=== PATIENT | female | born 1965 | race American Indian/Alaskan Native ===

== ENCOUNTER 2016-10-30 11:33 | Emergency (ER) | payer MEDICAID, OTHER ==
--- NOTE | 2016-11-23 16:48 | EDM.PDOC ---
Scribed by Delfina Trujillo 10/30/16 1442 for Emmanuel Cervantes MD ED HPI Skin/Rash - General Chief Complaint: Skin Complaint Stated Complaint: ABSESS [id number] Time Seen by Provider: 10/30/16 12:19 Source: Reports: Patient, RN, RN notes reviewed History Limitations: Reports: No limitations - History of Present Illness INITIAL COMMENTS - FREE TEXT/NARRATIVE: Patient with abscessed tooth at right lower molar. Painful x3 days. History of chronic dental decay. Quality: Reports: Ache Severity: moderate Associated Symptoms: Reports: no other symptoms - Related Data Allergies Allergy/AdvReac Type Severity Reaction Status Date / Time Sulfa (Sulfonamide Allergy Cannot Verified 11/17/16 20:57 Antibiotics) Remember Home Meds: Ambulatory Orders Medication Instructions Recorded Confirmed Ibuprofen 200 mg PO Q6H PRN 06/20/16 11/17/16 Past Medical History - Past Health History Medical/Surgical History: Denies Medical/Surgical History Musculoskeletal History: Reports: Back pain, chronic Neurological History: Reports: Vertigo Social & Family History - Family History Family Medical History: Noncontributory - Tobacco Use Smoking Status *Q: Current Every Day Smoker Years of Tobacco use: 20 Packs/Tins Daily: 0.5 - Caffeine Use Caffeine Use: Reports: Coffee - Recreational Drug Use Recreational Drug Use: No ED ROS GENERAL - Review of Systems Review Of Systems: ROS reveals no pertinent complaints other than HPI. ED EXAM, SKIN/RASH Exam: See Below Exam Limited By: No limitations General Appearance: alert, WD/WN, no apparent distress Eye Exam: bilateral eye: normal inspection Ears: normal external exam, normal canal, hearing grossly normal, normal TMs Nose: normal inspection, normal mucosa, no blood Throat/Mouth: Other (chronic extensive dental decay with swollen, erythemous gums at right maxillary molar region. Not fluctuant. No drainage. ) Head: atraumatic, normocephalic Neck: normal inspection, supple, non-tender, full range of motion Respiratory/Chest: no respiratory distress Neurological: alert, oriented, CN II-XII intact, normal cognition, normal gait, normal reflexes, no motor/sensory deficits Psychiatric: normal affect, normal mood Skin: Warm, Dry, Intact, Normal color Course - Vital Signs Last Recorded V/S: Last Vital Signs Temp 36.8 C 10/30/16 11:45 Pulse 78 10/30/16 11:45 Resp 16 10/30/16 11:45 BP 108/67 10/30/16 11:45 Pulse Ox 100 10/30/16 11:45 Departure - Departure Time of Disposition: 12:26 Disposition: Home, Self-Care 01 Condition: good Clinical Impression: Dental abscess Instructions: Dental Abscess, [id number] Referrals: PCP,None [Primary Care Provider] - Forms: ED Department Discharge Additional Instructions: Clindamycin 300mg. Viscus lidocaine 2%. Use over the counter Ibuprofen 200mg take 3 tablets every 6 hours as needed for pain, take with good. Follow up with dentist at first available appointment. I have read and agree with the documentation that has been completed regarding this visit. By signing this record, I attest that the documentation was completed in my physical presence and is an accurate record of the encounter.
== END 2016-10-30 12:34 | disposition home or self-care (01) ==
LOC: DL.ED 11:33
CPT/HCPCS: 99282

== ENCOUNTER 2016-11-17 20:48 | Emergency (ER) | payer MEDICAID ==
[2016-11-17 20:57] VITALS: BP 137/53
[2016-11-17] MEDS ORDERED: Gabapentin 300 MG Cap PO ONE (21:01)
[2016-11-17] MEDS ORDERED: Ibuprofen 600 MG Tab PO ONE (21:01)
--- NOTE | 2016-11-17 21:02 | EDM.PDOC ---
ED HPI GENERAL MEDICAL PROBLEM - General Chief Complaint: Neck Problem Stated Complaint: NECK Time Seen by Provider: 11/17/16 20:59 Source of Information: Reports: Patient History Limitations: Reports: No limitations - History of Present Illness INITIAL COMMENTS - FREE TEXT/NARRATIVE: 51 yo white female c/o low posterior neck pain after elevator door hit her in back yesterday. Pt. admits to PMHx. Cervical DDD. Pt. present has Neurontin at home but has not started using. 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 Neck Pain Score (Numeric/FACES): 7 - Related Data Allergies Allergy/AdvReac Type Severity Reaction Status Date / Time Sulfa (Sulfonamide Allergy Cannot Verified 11/17/16 20:57 Antibiotics) Remember Home Meds: Home Meds Ibuprofen 200 mg PO Q6H PRN 06/20/16 [History] Past Medical History - Past Health History Medical/Surgical History: Denies Medical/Surgical History HEENT History: Reports: None Cardiovascular History: Reports: None Respiratory History: Reports: None Gastrointestinal History: Reports: None Genitourinary History: Reports: None Musculoskeletal History: Reports: Back pain, chronic, Neck pain, chronic Neurological History: Reports: None, Vertigo Psychiatric History: Reports: None Endocrine/Metabolic History: Reports: None Hematologic History: Reports: None Oncologic (Cancer) History: Reports: None Dermatologic History: Reports: None Social & Family History - Family History Family Medical History: Noncontributory - Tobacco Use Smoking Status *Q: Current Every Day Smoker Years of Tobacco use: 20 Packs/Tins Daily: 0.5 - Caffeine Use Caffeine Use: Reports: Coffee - Recreational Drug Use Recreational Drug Use: No ED ROS GENERAL - Review of Systems Review Of Systems: See Below Constitutional: Reports: no symptoms HEENT: Reports: No symptoms Respiratory: Reports: No Symptoms Cardiovascular: Reports: No symptoms Endocrine: Reports: no symptoms GI/Abdominal: Reports: No symptoms Musculoskeletal: Reports: neck pain (low posterior neck ) Skin: Reports: no symptoms Neurological: Reports: No Symptoms Psychiatric: Reports: No symptoms Hematologic/Lymphatic: Reports: no symptoms Immunologic: Reports: no symptoms ED EXAM, GENERAL - Physical Exam Exam: See Below Exam Limited By: No limitations General Appearance: alert, no apparent distress Eye Exam: bilateral eye: PERRL Ears: normal external exam Nose: normal inspection Throat/Mouth: Normal inspection Head: atraumatic Neck: other (low posterior neck tenderness w/o swelling and w/o discoloration) Respiratory/Chest: no respiratory distress Cardiovascular: normal peripheral pulses, regular rate, rhythm Back Exam: normal inspection, full range of motion Extremities: normal inspection Neurological: alert, oriented, CN II-XII intact Psychiatric: normal affect, normal mood Skin Exam: Warm Lymphatic: no adenopathy Course - Vital Signs Last Recorded V/S: Last Vital Signs Temp 36.1 C 11/17/16 20:53 Pulse 83 11/17/16 20:53 Resp 16 11/17/16 20:53 BP 137/53 L 11/17/16 20:53 Pulse Ox 100 11/17/16 20:53 - Orders/Labs/Meds Orders: Active Orders 24 hr Category Date Time Status Cervical Spine 2V or 3V [CR] Urgent Exams 11/17/16 21:01 Taken Meds: Medications Discontinued Medications Generic Name Dose Route Start Last Admin Trade Name Freq PRN Reason Stop Dose Admin Gabapentin 300 mg 11/17/16 21:01 11/17/16 21:16 Neurontin PO 11/17/16 21:02 300 mg ONETIME ONE Administration Ibuprofen 600 mg 11/17/16 21:01 11/17/16 21:16 Motrin PO 11/17/16 21:02 600 mg ONETIME ONE Administration Departure - Departure Time of Disposition: 21:28 Disposition: Home, Self-Care 01 Condition: good Clinical Impression: Degenerative disc disease, cervical Contusion Qualifiers: Encounter type: initial encounter Contusion area: neck Qualified Code(s): S10.93XA - Contusion of unspecified part of neck, initial encounter Forms: ED Department Discharge Additional Instructions: Apply Ice Pack to area of pain TID X 15 mns. Take your script of Neurontin as prescribed by your Doctor Take NSAIDs OTC : 600mg TID w/ food only ( Alleve, Advil or Ibuprofen) F/U w/ PCP for further evaluation and possible MRI evaluation - My Orders Last 24 Hours: My Active Orders 11/17/16 21:01 Cervical Spine 2V or 3V [CR] Urgent - Assessment/Plan Last 24 Hours: My Active Orders 11/17/16 21:01 Cervical Spine 2V or 3V [CR] Urgent
== END 2016-11-17 21:35 | disposition home or self-care (01) ==
LOC: DL.ED 20:48
DX: S10.93XA Contusion of unspecified part of neck, initial encounter (principal); M50.30 Other cervical disc degeneration, unspecified cervical region; F17.210 Nicotine dependence, cigarettes, uncomplicated; Z88.2 Allergy status to sulfonamides; W22.8XXA Striking against or struck by other objects, initial encounter
CPT/HCPCS: 72040; 99283; A9270

== ENCOUNTER 2017-05-23 12:17 | Emergency (ER) | payer MEDICAID ==
[2017-05-23 12:36] VITALS: BP 122/87
[2017-05-23 14:22] LABS: CHLORIDE,CL 100 mmol/L (101-111); SODIUM,NA 137 mmol/L (135-145)
--- NOTE | 2017-05-23 14:42 | EDM.PDOC ---
ED HPI GENERAL MEDICAL PROBLEM - General Chief Complaint: General Stated Complaint: DIZZY, LIGHTHEADED, BACK PAIN Time Seen by Provider: 05/23/17 13:45 Source of Information: Reports: Patient, RN, RN Notes Reviewed History Limitations: Reports: No Limitations - History of Present Illness INITIAL COMMENTS - FREE TEXT/NARRATIVE: Patient presents to the ER with c/o dizziness. She states she has been diagnosed with vertigo in the past, and she does have Meclizine, but she feels it has been increased the last "day or so". She denies N/V/D, CP or SOB, fever or chills, or syncope. Onset: Gradual Onset Date: 05/22/17 Location: Reports: Head Severity: Mild Improves with: Reports: None Worsens with: Reports: None Context: Reports: Activity, Exercise Associated Symptoms: Reports: No Other Symptoms Generalized Pain Score (Numeric/FACES): 6 - Related Data Allergies Allergy/AdvReac Type Severity Reaction Status Date / Time Sulfa (Sulfonamide Allergy Cannot Verified 05/23/17 12:27 Antibiotics) Remember Home Meds: Home Meds Ibuprofen 200 mg PO Q6H PRN 06/20/16 [History] Acetaminophen [Tylenol Extra Strength] 500 mg PO DAILY 05/23/17 [History] Gabapentin [Neurontin] 300 mg PO BEDTIME 05/23/17 [History] Past Medical History - Past Health History Medical/Surgical History: Denies Medical/Surgical History HEENT History: Reports: None Cardiovascular History: Reports: None Respiratory History: Reports: None Gastrointestinal History: Reports: None Genitourinary History: Reports: None Musculoskeletal History: Reports: Back Pain, Chronic, Neck Pain, Chronic Neurological History: Reports: Vertigo Psychiatric History: Reports: None Endocrine/Metabolic History: Reports: None Hematologic History: Reports: None Oncologic (Cancer) History: Reports: None Dermatologic History: Reports: None Social & Family History - Family History Family Medical History: Unobtainable - Tobacco Use Smoking Status *Q: Current Every Day Smoker Years of Tobacco use: 30 Packs/Tins Daily: 1 Used Tobacco, but Quit: No - Caffeine Use Caffeine Use: Reports: Coffee - Recreational Drug Use Recreational Drug Use: No ED ROS GENERAL - Review of Systems Review Of Systems: ROS reveals no pertinent complaints other than HPI. ED EXAM, GENERAL - Physical Exam Exam: See Below Exam Limited By: No Limitations General Appearance: Alert, WD/WN, No Apparent Distress Eye Exam: Bilateral Eye: Normal Inspection, PERRL Ears: Normal External Exam, Normal Canal, Hearing Grossly Normal, Normal TMs Ear Exam: Bilateral Ear: Auricle Normal, Canal Normal, TM normal Nose: Normal Inspection, Normal Mucosa, No Blood Throat/Mouth: Normal Inspection, Normal Lips, Normal Teeth, Normal Gums, Normal Oropharynx, Normal Voice, No Airway Compromise Head: Atraumatic, Normocephalic Neck: Normal Inspection, Supple, Non-Tender, Full Range of Motion Respiratory/Chest: No Respiratory Distress, Lungs Clear, Normal Breath Sounds, No Accessory Muscle Use, Chest Non-Tender Cardiovascular: Normal Peripheral Pulses, Regular Rate, Rhythm, No Edema, No Gallop, No JVD, No Murmur, No Rub Peripheral Pulses: 2+: Radial (L), Radial (R) GI/Abdominal: Normal Bowel Sounds, Soft, Non-Tender, No Organomegaly, No Distention, No Abnormal Bruit, No Mass (Female) Exam: Deferred Rectal (Female) Exam: Deferred Back Exam: Normal Inspection, Full Range of Motion, NT Extremities: Normal Inspection, Normal Range of Motion, Non-Tender, Normal Capillary Refill, No Pedal Edema Neurological: Alert, Oriented, Normal Cognition, Normal Gait, No Motor/Sensory Deficits Psychiatric: Normal Affect, Normal Mood Skin Exam: Warm, Dry, Intact, Normal Color, No Rash Lymphatic: No Adenopathy Course - Vital Signs Last Recorded V/S: Last Vital Signs Temp 97.7 F 05/23/17 12:34 Pulse 80 05/23/17 12:34 Resp 18 05/23/17 12:34 BP 122/87 05/23/17 12:34 Pulse Ox 100 05/23/17 12:34 Orthostatic Blood Pressure [ 125/73 Standing] Orthostatic Blood Pressure [ 117/68 Sitting] Orthostatic Blood Pressure [ 133/69 Supine] - Orders/Labs/Meds Labs: Laboratory Tests 05/23/17 05/23/17 05/23/17 Range/Units 13:40 13:46 13:46 WBC 6.4 (5.0-10.0) 10^3/uL RBC 4.27 (4.2-5.4) 10^6/uL Hgb 12.7 (12.0-16.0) g/dL Hct 38.8 (37.0-47.0) % MCV 90.9 (80-100) fL MCH 29.7 (27.0-34.0) pg MCHC 32.7 L (33.0-35.0) g/dL Plt Count 214 (150-450) 10^3/uL Neut % (Auto) 58.7 (42.2-75.2) % Lymph % (Auto) 31.7 (20.5-50.1) % Leslie % (Auto) 7.9 (2-8) % Eos % (Auto) 1.4 (1.0-3.0) % Baso % (Auto) 0.3 (0.0-1.0) % Sodium 137 (135-145) mmol/L Potassium 4.0 (3.6-5.0) mmol/L Chloride 100 L (101-111) mmol/L Carbon Dioxide 28.0 (21.0-31.0) mmol/L Anion Gap 13.0 BUN 15 (7-18) mg/dL Creatinine 0.9 (0.6-1.3) mg/dL Est Cr Clr Drug Dosing 61.71 mL/min Estimated GFR (MDRD) > 60 BUN/Creatinine Ratio 16.66 Glucose 93 (74-105) mg/dL Calcium 9.0 (8.4-10.2) mg/dl Total Bilirubin 0.5 (0.2-1.0) mg/dL AST 16 (10-42) IU/L ALT 12 (10-60) IU/L Alkaline Phosphatase 62 (42-121) IU/L Total Protein 7.2 (6.7-8.2) g/dl Albumin 4.4 (3.2-5.5) g/dl Globulin 2.8 Albumin/Globulin Ratio 1.57 Urine Color Yellow (YELLOW) Urine Appearance Slightly cloudy (CLEAR) Urine pH 5.5 (5.0-9.0) Ur Specific [place] 1.010 (1.005-1.030) Urine Protein Negative (NEGATIVE) Urine Glucose (UA) Negative (NEGATIVE) Urine Ketones Negative (NEGATIVE) Urine Occult Blood Trace-lysed H (NEGATIVE) Urine Nitrite Negative (NEGATIVE) Urine Bilirubin Negative (NEGATIVE) Urine Urobilinogen 0.2 (0.2-1.0) mg/dL Ur Leukocyte Esterase Negative (NEGATIVE) Urine RBC 0-5 /HPF Urine WBC 0-5 (0-5/HPF) /HPF Ur Epithelial Cells Rare /HPF Urine Bacteria Rare (0-FEW/HPF) /HPF Urine Mucus Rare /LPF - Re-Assessments/Exams Free Text/Narrative Re-Assessment/Exam: 05/24/17 08:23\\ The patient is deemed medically stable. Upon discharge, she was taken to [facility] to be evaluated for vertigo by Saul Vela DPT. Departure - Departure Time of Disposition: 14:38 Disposition: Home, Self-Care 01 Condition: Good Clinical Impression: Vertigo - Discharge Information Instructions: Vertigo, [id number] Forms: ED Department Discharge Additional Instructions: Take Meclizine as prescribed. Follow up with primary care provider in 2-3 days.
== END 2017-05-23 14:46 | disposition home or self-care (01) ==
LOC: DL.ED 12:17
DX: R42 Dizziness and giddiness (principal); F17.210 Nicotine dependence, cigarettes, uncomplicated; Z88.2 Allergy status to sulfonamides; Z79.899 Other long term (current) drug therapy
CPT/HCPCS: 36415; 80053; 81001; 85025; 99284

== ENCOUNTER 2017-11-02 06:41 | Day surgery (SDC) | payer MEDICAID ==
[~2017-11-02 06:41] MED LIST: Midazolam 1 MG/ML 2 ML SDV ONE; Sodium Chloride 0.9% 10 ML Syringe FLUSH PRN; fentaNYL 100 MCG/2 ML SDV ONE
[2017-11-02] MEDS ORDERED: fentaNYL 100 MCG/2 ML SDV IV ONE (06:42)
[2017-11-02] MEDS ORDERED: Midazolam 1 MG/ML 2 ML SDV IV ONE (06:42)
[2017-11-02] MEDS: Dextrose 5%-0.45% NaCl 1,000 ML IV SCH (07:09)
[2017-11-02] MEDS: fentaNYL 100 MCG/2 ML SDV IV ONE ×2 (07:46→07:47)
[2017-11-02] MEDS: Midazolam 1 MG/ML 2 ML SDV IV ONE ×6 (07:47→07:56)
--- NOTE | 2017-11-02 08:45 | OR ---
DATE: 11/02/2017 PROCEDURE: Total colonoscopy. INSTRUMENT USED: PCF-H180 AL Olympus video colonoscope. PREMEDICATIONS: Fentanyl 100 mcg intravenous, Versed 4 mg intravenous. Nasal O2 cannula. 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 INDICATION: The patient with rectal bleeding and stools FIT positive. Colonoscopic examination is done for detection of any polypoid lesions and removal, endoscopic hemostasis therapy if needed. DESCRIPTION OF PROCEDURE: Initial rectal exam was unremarkable. Rigid anoscopy showed small internal hemorrhoids without bleeding from them. The colonoscope was passed with ease. Numerous scattered diverticula were noted in the distal descending colon along with deformity. The scope was passed with ease up to the ileocecal area. Photographs were taken of the normal-appearing cecum, identified by landmarks of appendiceal orifice and double-bulged ileocecal folds. No bleeding was noted from any of the visualized areas at the commencement of the examination. No stricture. No vascular ectasia. No large isolated ulcerations seen. No evidence of diffuse inflammatory bowel disease in the form of friability, contact bleeding, or ulcerations. No polyp or tumor mass identified. Probing the proximal sides of folds and flexures, using adequate distention and clearing up the stool material, withdrawal of the scope was made. [id number] time over 6 minutes. No bleeding was noted from any of the visualized areas at the completion of examination. IMPRESSION: 1. Internal hemorrhoids. 2. Diverticulosis. The patient tolerated the procedure well. [facility] /[id number]
[2017-11-02 09:20] VITALS: BP 109/68
== END 2017-11-02 09:30 | disposition home or self-care (01) ==
LOC: DL.ENDO 06:41
PROVIDERS: ATTEND Internal Medicine Gastroenterology
DX: K57.30 Diverticulosis of large intestine without perforation or abscess without bleeding (principal); K64.8 Other hemorrhoids; E66.9 Obesity, unspecified; E78.5 Hyperlipidemia, unspecified; G89.4 Chronic pain syndrome; Z88.2 Allergy status to sulfonamides; Z88.8 Allergy status to other drugs, medicaments and biological substances; Z98.51 Tubal ligation status; F17.210 Nicotine dependence, cigarettes, uncomplicated
CPT/HCPCS: 45378; J2250; J3010; J7042

== ENCOUNTER 2017-11-03 15:19 | Emergency (ER) | payer MEDICAID ==
[2017-11-03 16:07] VITALS: BP 117/68
--- NOTE | 2017-11-03 17:29 | EDM.PDOC ---
Scribed by Delfina Trujillo 11/03/17 [id number] for Jos Gomez PA ED HPI GENERAL MEDICAL PROBLEM - General Chief Complaint: Abdominal Pain Stated Complaint: [id number] TOLD TO COME BY Time Seen by Provider: 11/03/17 16:30 Source of Information: Reports: Patient, RN, RN Notes Reviewed History Limitations: Reports: No Limitations - History of Present Illness INITIAL COMMENTS - FREE TEXT/NARRATIVE: Patient had a colonoscopy yesterday and today she developed some abdominal discomfort. She has had no pain for the last 2 hours. It started as sharp stabbing pain. She is eating and drinking. She has passed no gas today. Onset: Today Duration: Resolved Prior to Arrival Location: Reports: Abdomen Severity: Mild Right Abdomen Pain Score (Numeric/FACES): 8 - Related Data Allergies Allergy/AdvReac Type Severity Reaction Status Date / Time budesonide [From Symbicort] Allergy Other Verified 11/02/17 07:15 formoterol [From Symbicort] Allergy Other Verified 11/02/17 07:15 Sulfa (Sulfonamide AdvReac Diarrhea Verified 11/02/17 07:15 Antibiotics) Home Meds: Home Meds Ibuprofen 600 mg PO Q8H PRN 06/20/16 [History] Acetaminophen [Tylenol Extra Strength] 500 mg PO DAILY 05/23/17 [History] Gabapentin [Neurontin] 300 mg PO BEDTIME 05/23/17 [History] EPINEPHrine [Epinephrine] 0.3 mg PO ASDIRECTED PRN 10/20/17 [History] Meclizine [Antivert] 12.5 mg PO BID 10/20/17 [History] Past Medical History - Past Health History Medical/Surgical History: Denies Medical/Surgical History HEENT History: Reports: None Cardiovascular History: Reports: High Cholesterol Respiratory History: Reports: Asthma Gastrointestinal History: Reports: None Genitourinary History: Reports: None 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: Musculoskeletal History: Reports: Arthritis, Back Pain, Chronic, Neck Pain, Chronic Neurological History: Reports: Vertigo Psychiatric History: Reports: None Endocrine/Metabolic History: Reports: None Hematologic History: Reports: None Immunologic History: Reports: None Oncologic (Cancer) History: Reports: None Dermatologic History: Reports: None - Infectious Disease History Infectious Disease History: Reports: Chicken Pox - Past Surgical History Head Surgeries/Procedures: Reports: None HEENT Surgical History: Reports: None Cardiovascular Surgical History: Reports: None Respiratory Surgical History: Reports: None GI Surgical History: Reports: Colonoscopy Female Surgical History: Reports: Tubal Ligation Endocrine Surgical History: Reports: None Neurological Surgical History: Reports: None Musculoskeletal Surgical History: Reports: Other (See Below) Other Musculoskeletal Surgeries/Procedures:: S/P TOENAIL AVULSION Dermatological Surgical History: Reports: None Social & Family History - Family History Family Medical History: Unobtainable - Tobacco Use Smoking Status *Q: Current Every Day Smoker Years of Tobacco use: 20 Packs/Tins Daily: 0.7 Used Tobacco, but Quit: No - Caffeine Use Caffeine Use: Reports: Coffee, Soda Other Caffeine Use: AVERAGE OF 2 CUPS DAILY - Recreational Drug Use Recreational Drug Use: No Drug Use in Last 12 Months: No ED ROS GENERAL - Review of Systems Review Of Systems: ROS reveals no pertinent complaints other than HPI. ED EXAM, GI/ABD - Physical Exam Exam: See Below Exam Limited By: No Limitations General Appearance: Alert, WD/WN, No Apparent Distress Eyes: Bilateral: Normal Appearance Ears: Normal External Exam, Normal Canal, Hearing Grossly Normal, Normal TMs Nose: Normal Inspection, Normal Mucosa, No Blood Throat/Mouth: Normal Inspection, Normal Lips, Normal Teeth, Normal Gums, Normal Oropharynx, Normal Voice, No Airway Compromise Head: Atraumatic, Normocephalic Neck: Normal Inspection, Supple, Non-Tender, Full Range of Motion Respiratory/Chest: No Respiratory Distress, Lungs Clear, Normal Breath Sounds, No Accessory Muscle Use, Chest Non-Tender Cardiovascular: Normal Peripheral Pulses, Regular Rate, Rhythm, No Edema, No Gallop, No JVD, No Murmur, No Rub GI/Abdominal Exam: Other (RLQ pain that subsided 2 hours ago. ) (Female) Exam: Deferred Rectal (Female) Exam: Deferred Neurological: Alert, Oriented, CN II-XII Intact, Normal Cognition, Normal Gait, Normal Reflexes, No Motor/Sensory Deficits Psychiatric: Normal Affect, Normal Mood Skin Exam: Warm, Dry, Intact, Normal Color, No Rash Course - Vital Signs Last Recorded V/S: Last Vital Signs Temp 37.2 C 11/03/17 16:06 Pulse 68 11/03/17 16:06 Resp 16 11/03/17 16:06 BP 117/68 11/03/17 16:06 Pulse Ox 100 11/03/17 16:06 - Orders/Labs/Meds Orders: Active Orders 24 hr Category Date Time Status Abdomen 2V AP Flat Upright [CR] Urgent Exams 11/03/17 17:19 Taken Labs: Laboratory Tests 11/03/17 11/03/17 11/03/17 Range/Units 16:40 16:40 16:40 WBC 6.5 (5.0-10.0) 10^3/uL RBC 4.41 (4.2-5.4) 10^6/uL Hgb 13.3 (12.0-16.0) g/dL Hct 39.5 (37.0-47.0) % MCV 89.6 (80-100) fL MCH 30.2 (27.0-34.0) pg MCHC 33.7 (33.0-35.0) g/dL Plt Count 220 (150-450) 10^3/uL Neut % (Auto) 58.3 (42.2-75.2) % Lymph % (Auto) 31.7 (20.5-50.1) % [place] % (Auto) 7.6 (2-8) % Eos % (Auto) 1.9 (1.0-3.0) % Baso % (Auto) 0.5 (0.0-1.0) % Sodium 135 (135-145) mmol/L Potassium 4.1 (3.6-5.0) mmol/L Chloride 103 (101-111) mmol/L Carbon Dioxide 26.0 (21.0-31.0) mmol/L Anion Gap 10.1 BUN 16 (7-18) mg/dL Creatinine 1.0 (0.6-1.3) mg/dL Est Cr Clr Drug Dosing 55.54 mL/min Estimated GFR (MDRD) 58 BUN/Creatinine Ratio 16.00 Glucose 94 (74-105) mg/dL Calcium 8.7 (8.4-10.2) mg/dl Total Bilirubin 0.3 (0.2-1.0) mg/dL AST 18 (10-42) IU/L ALT 15 (10-60) IU/L Alkaline Phosphatase 60 (42-121) IU/L Total Protein 7.2 (6.7-8.2) g/dl Albumin 4.3 (3.2-5.5) g/dl Globulin 2.9 Albumin/Globulin Ratio 1.48 Amylase 55 (28-100) U/L Lipase 35 (22-51) U/L Urine Color (YELLOW) Urine Appearance (CLEAR) Urine pH (5.0-9.0) Ur Specific [place] (1.005-1.030) Urine Protein (NEGATIVE) Urine Glucose (UA) (NEGATIVE) Urine Ketones (NEGATIVE) Urine Occult Blood (NEGATIVE) Urine Nitrite (NEGATIVE) Urine Bilirubin (NEGATIVE) Urine Urobilinogen (0.2-1.0) mg/dL Ur Leukocyte Esterase (NEGATIVE) Urine RBC /HPF Urine WBC (0-5/HPF) /HPF Ur Epithelial Cells /HPF Urine Bacteria (0-FEW/HPF) /HPF Urine Mucus /LPF 11/03/17 Range/Units 17:46 WBC (5.0-10.0) 10^3/uL RBC (4.2-5.4) 10^6/uL Hgb (12.0-16.0) g/dL Hct (37.0-47.0) % MCV (80-100) fL MCH (27.0-34.0) pg MCHC (33.0-35.0) g/dL Plt Count (150-450) 10^3/uL Neut % (Auto) (42.2-75.2) % Lymph % (Auto) (20.5-50.1) % [place] % (Auto) (2-8) % Eos % (Auto) (1.0-3.0) % Baso % (Auto) (0.0-1.0) % Sodium (135-145) mmol/L Potassium (3.6-5.0) mmol/L Chloride (101-111) mmol/L Carbon Dioxide (21.0-31.0) mmol/L Anion Gap BUN (7-18) mg/dL Creatinine (0.6-1.3) mg/dL Est Cr Clr Drug Dosing mL/min Estimated GFR (MDRD) BUN/Creatinine Ratio Glucose (74-105) mg/dL Calcium (8.4-10.2) mg/dl Total Bilirubin (0.2-1.0) mg/dL AST (10-42) IU/L ALT (10-60) IU/L Alkaline Phosphatase (42-121) IU/L Total Protein (6.7-8.2) g/dl Albumin (3.2-5.5) g/dl Globulin Albumin/Globulin Ratio Amylase (28-100) U/L Lipase (22-51) U/L Urine Color Yellow (YELLOW) Urine Appearance Slightly cloudy (CLEAR) Urine pH 5.5 (5.0-9.0) Ur Specific [place] 1.025 (1.005-1.030) Urine Protein Negative (NEGATIVE) Urine Glucose (UA) Negative (NEGATIVE) Urine Ketones Negative (NEGATIVE) Urine Occult Blood Trace-lysed H (NEGATIVE) Urine Nitrite Negative (NEGATIVE) Urine Bilirubin Negative (NEGATIVE) Urine Urobilinogen 0.2 (0.2-1.0) mg/dL Ur Leukocyte Esterase Trace H (NEGATIVE) Urine RBC 0-5 /HPF Urine WBC 0-5 (0-5/HPF) /HPF Ur Epithelial Cells Few /HPF Urine Bacteria Rare (0-FEW/HPF) /HPF Urine Mucus Few H /LPF - Re-Assessments/Exams Free Text/Narrative Re-Assessment/Exam: 11/03/17 17:28 The patient was advised of the lab results. The patient was sent to radiology for abdominal x-rays. Departure - Departure Time of Disposition: 18:01 Disposition: Home, Self-Care 01 Condition: Fair Clinical Impression: Post procedure discomfort, Gas pain - Discharge Information Instructions: Abdominal Pain, Adult, [id number] Forms: ED Department Discharge Care Plan Goals: The patient was advised of the examination, lab and x-ray results during the visit. The patient was encouraged to continue to eat and drink normal foods. The patient was encouraged to continue to ambulate on a regular basis. If the patient has any additional symptoms, the patient should follow-up with her primary care facility or return to the emergency department. - My Orders Last 24 Hours: My Active Orders 11/03/17 17:19 Abdomen 2V AP Flat Upright [CR] Urgent - Assessment/Plan Last 24 Hours: My Active Orders 11/03/17 17:19 Abdomen 2V AP Flat Upright [CR] Urgent I have read and agree with the documentation that has been completed regarding this visit. By signing this record, I attest that the documentation was completed in my physical presence and is an accurate record of the encounter.
--- NOTE | 2017-11-03 18:08 | CR ---
Clinical history: 52-year-old female lower abdominal cramping. Interpretation: Negative exam. Flat and upright films of the abdomen reveal tiny punctate radiopacities midpole kidneys, particularl y on the right. Nephrolithiasis? Larger phlebolith-like radiopacities bilaterally in the pelvis. No abdominal soft tissue mass lesion or signs of mechanical bowel obstruction. No free intraperitonea l air. AP lumbar spine and pelvis and hips are unremarkable. Lung bases clear. CONCLUSION: Possible nephrolithiasis. Plain film exam abdomen otherwise unremarkable.
== END 2017-11-03 18:18 | disposition home or self-care (01) ==
LOC: DL.ED 15:19
DX: R14.1 Gas pain (principal); G89.18 Other acute postprocedural pain; E78.00 Pure hypercholesterolemia, unspecified; F17.210 Nicotine dependence, cigarettes, uncomplicated; Z88.8 Allergy status to other drugs, medicaments and biological substances; Z88.2 Allergy status to sulfonamides; Z79.899 Other long term (current) drug therapy; Z98.890 Other specified postprocedural states
CPT/HCPCS: 36415; 74019; 80053; 81001; 82150; 83690; 85025; 99284

== ENCOUNTER 2018-10-25 19:42 | Emergency (ER) | payer MEDICAID ==
[2018-10-25 19:52] VITALS: BP 120/75
--- NOTE | 2018-10-25 20:09 | EDM.PDOC ---
ED HPI GENERAL MEDICAL PROBLEM - General Chief Complaint: Neck Problem Stated Complaint: NECK PROBLEM [id number] Time Seen by Provider: 10/25/18 19:55 Source of Information: Reports: Patient History Limitations: Reports: No Limitations - History of Present Illness INITIAL COMMENTS - FREE TEXT/NARRATIVE: This 53 yo female patient reports to the ED with posterior neck pain. The patient reports she hit her head while getting out of her daughter's pick-up on Tuesday and has been experiencing increased neck pain since that time. The patient reports she is noticing some numbness to her neck which started today. The patient reports a history of DDD in her neck for years, but now her symptoms seem to be much worse. The patient reports she has been taking Tylenol , ibuprofen and gabapentin with little to no symptom relief. 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, NSAIDS, Other Medication(s) Neck Pain Score (Numeric/FACES): 8 - Related Data Allergies Allergy/AdvReac Type Severity Reaction Status Date / Time budesonide [From Symbicort] Allergy Other Verified 10/25/18 19:52 formoterol [From Symbicort] Allergy Other Verified 10/25/18 19:52 Sulfa (Sulfonamide AdvReac Diarrhea Verified 10/25/18 19:52 Antibiotics) Home Meds: Home Meds Ibuprofen 600 mg PO Q8H PRN 06/20/16 [History] Acetaminophen [Tylenol Extra Strength] 500 mg PO DAILY 05/23/17 [History] Gabapentin [Neurontin] 300 mg PO BEDTIME 05/23/17 [History] EPINEPHrine [Epinephrine] 0.3 mg PO ASDIRECTED PRN 10/20/17 [History] Meclizine [Antivert] 12.5 mg PO BID 10/20/17 [History] Past Medical History - Past Health History Medical/Surgical History: Denies Medical/Surgical History HEENT History: Reports: None Cardiovascular History: Reports: High Cholesterol Respiratory History: Reports: Asthma Gastrointestinal History: Reports: None Genitourinary History: Reports: None 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: Musculoskeletal History: Reports: Arthritis, Back Pain, Chronic, Neck Pain, Chronic Neurological History: Reports: Vertigo Psychiatric History: Reports: None Endocrine/Metabolic History: Reports: None Hematologic History: Reports: None Immunologic History: Reports: None Oncologic (Cancer) History: Reports: None Dermatologic History: Reports: None - Infectious Disease History Infectious Disease History: Reports: Chicken Pox - Past Surgical History Head Surgeries/Procedures: Reports: None HEENT Surgical History: Reports: None Cardiovascular Surgical History: Reports: None Respiratory Surgical History: Reports: None GI Surgical History: Reports: Colonoscopy Female Surgical History: Reports: Tubal Ligation Endocrine Surgical History: Reports: None Neurological Surgical History: Reports: None Musculoskeletal Surgical History: Reports: Other (See Below) Other Musculoskeletal Surgeries/Procedures:: S/P TOENAIL AVULSION Dermatological Surgical History: Reports: None Social & Family History - Family History Family Medical History: Unobtainable - Tobacco Use Smoking Status *Q: Current Every Day Smoker Years of Tobacco use: 20 Packs/Tins Daily: 20 - Caffeine Use Caffeine Use: Reports: Coffee, Soda Other Caffeine Use: AVERAGE OF 2 CUPS DAILY - Recreational Drug Use Recreational Drug Use: No ED ROS GENERAL - Review of Systems Review Of Systems: ROS reveals no pertinent complaints other than HPI. ED EXAM, UPPER BACK/NECK PAIN - Physical Exam Exam: See Below Exam Limited By: No Limitations General Appearance: Alert, WD/WN, Moderate Distress Eye Exam: Bilateral Eye: EOMI, Normal Inspection, PERRL Ears Exam: Normal External Exam, Normal Canal, Hearing Grossly Normal, Normal TMs Nose Exam: Normal Inspection, Normal Mucousa, No Blood Throat/Mouth Exam: Normal Inspection, Normal Lips, Normal Teeth, Normal Gums, Normal Oropharynx, Normal Voice, No Airway Compromise Head Exam: Atraumatic, Normocephalic Neck Exam: Limited Range of Motion, Painful Range of Motion, Paraspinous Muscle Tender, Stiff Neck, Tenderness Nexus Criteria: Focal Neurological Deficit (patient reports numbness in her posterior neck). No: Posterior, Midline Cervical Tenderness, Evidence of Intoxication, Altered Level of Consciousness, Painful Distraction Injuries Cardiovascular/Respiratory: Regular Rate, Rhythm, No M/R/G, Normal Peripheral Pulses, No JVD, Normal Breath Sounds, No Respiratory Distress GI/Abdominal: Normal Bowel Sounds, Soft, Non-Tender, No Organomegaly, No Distention, No Abnormal Bruit, No Mass (Female) Exam: Deferred Rectal (Female) Exam: Deferred Back Exam: Normal Inspection, Full Range of Motion, NT Extremities: Normal Inspection, Normal Range of Motion, Non-Tender, No Pedal Edema, Normal Capillary Refill 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, No Motor/Sensory Deficits, Alert, Normal Mood/Affect, Oriented x 3 Psychiatric: Normal Affect, Normal Mood Skin Exam: Normal Color, Warm/Dry Lymphatic: No Adenopathy Course - Vital Signs Last Recorded V/S: Last Vital Signs Temp 36.8 C 10/25/18 19:51 Pulse 75 10/25/18 19:51 Resp 18 10/25/18 19:51 BP 120/75 10/25/18 19:51 Pulse Ox 96 10/25/18 19:51 - Orders/Labs/Meds Orders: Active Orders 24 hr Category Date Time Status Cervical Spine wo Cont [CT] Urgent Exams 10/25/18 20:02 Ordered Departure - Departure Time of Disposition: 21:03 Disposition: Home, Self-Care 01 Condition: Fair Clinical Impression: Cervical strain Qualifiers: Encounter type: initial encounter Qualified Code(s): S16.1XXA - Strain of muscle, fascia and tendon at neck level, initial encounter - Discharge Information *PRESCRIPTION DRUG MONITORING PROGRAM REVIEWED*: Not Applicable *COPY OF PRESCRIPTION DRUG MONITORING REPORT IN PATIENT AUSTYN: Not Applicable Instructions: Cervical Sprain, [id number] Forms: ED Department Discharge Care Plan Goals: The patient was advised of the examination and CT results during the visit. The patient was given a copy of the CT results and encouraged to bring them to her primary care facility for continued evaluation and further management. The patient was discharged with a dose of Flexeril (10 mg) to take at bedtime tonight and a script for Flexeril (10 mg) #10 to take 1 by mouth at bedtime as needed. If the patient has any additional symptoms or concerns, the patient should either return to the emergency department or visit her primary care facility. - My Orders Last 24 Hours: My Active Orders 10/25/18 20:02 Cervical Spine wo Cont [CT] Urgent - Assessment/Plan Last 24 Hours: My Active Orders 10/25/18 20:02 Cervical Spine wo Cont [CT] Urgent
[2018-10-25] MEDS: Cyclobenzaprine 10 MG Tab ONE (21:55)
== END 2018-10-25 21:10 | disposition home or self-care (01) ==
LOC: DL.ED 19:42
DX: S16.1XXA Strain of muscle, fascia and tendon at neck level, initial encounter (principal); F17.210 Nicotine dependence, cigarettes, uncomplicated; E78.00 Pure hypercholesterolemia, unspecified; Z79.899 Other long term (current) drug therapy; Z88.2 Allergy status to sulfonamides; Z88.8 Allergy status to other drugs, medicaments and biological substances; W22.8XXA Striking against or struck by other objects, initial encounter
CPT/HCPCS: 72125; 99283-25

== ENCOUNTER 2019-01-22 11:30 | Emergency (ER) | payer MEDICAID ==
[2019-01-22] MEDS ORDERED: Sodium Chloride 0.9% 10 ML Syringe FLUSH PRN (11:39)
[2019-01-22 11:41] VITALS: BP 146/73
--- NOTE | 2019-01-22 11:54 | EDM.PDOC ---
<Mary Hensley - Last Filed: 01/22/19 13:34> ED HPI GENERAL MEDICAL PROBLEM - General Chief Complaint: Neurological Problem Stated Complaint: STROKE? [id number] Time Seen by Provider: 01/22/19 11:35 Source of Information: Reports: Patient History Limitations: Reports: No Limitations - History of Present Illness INITIAL COMMENTS - FREE TEXT/NARRATIVE: Patient developed new onset weakness Tuesday (January 20) at 2000 to her bilateral lower extremities, with her right leg being more weak. Patient states that when this first developed, it took x2 family members to get her inside from her car. Patient states that shortly after she started to experiencing a vertigo spell. Patient reports that during this "episode" she "blacked out", but never lost consciousness. Patient reports that she was very nauseated and did have x1 emesis. Patient also reports new onset shortness of breath since this episode, finding herself working harder to breathe. Patient denies any activity leading up to this activity, other than going to visit her son in his new apartment. Patient has long standing history of vertigo, but states that it has been getting worse of the last few months. Patient does medicate with Meclizine daily for her vertigo. Onset: Other Onset Date: 01/20/19 Onset Time: 20:00 Duration: Getting Worse Location: Reports: Lower Extremity, Left, Lower Extremity, Right (RLE "more weak " than left) Quality: Reports: Other (weakness) Worsens with: Reports: Movement Associated Symptoms: Reports: Nausea/Vomiting, Shortness of Breath, Weakness Neck Pain Score (Numeric/FACES): 8 - Related Data Allergies Allergy/AdvReac Type Severity Reaction Status Date / Time budesonide [From Symbicort] Allergy Other Verified 01/22/19 11:37 formoterol [From Symbicort] Allergy Other Verified 01/22/19 11:37 Sulfa (Sulfonamide AdvReac Diarrhea Verified 01/22/19 11:37 Antibiotics) Home Meds: Home Meds Ibuprofen 600 mg PO Q8H PRN 06/20/16 [History] Acetaminophen [Tylenol Extra Strength] 500 mg PO DAILY 05/23/17 [History] Gabapentin [Neurontin] 300 mg PO BEDTIME 05/23/17 [History] EPINEPHrine [Epinephrine] 0.3 mg PO ASDIRECTED PRN 10/20/17 [History] Meclizine [Antivert] 12.5 mg PO BID 10/20/17 [History] Past Medical History - Past Health History Medical/Surgical History: Denies Medical/Surgical History HEENT History: Reports: None Cardiovascular History: Reports: High Cholesterol Respiratory History: Reports: Asthma (pt states "was told she no longer has it") Gastrointestinal History: Reports: None Genitourinary History: Reports: None 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: Musculoskeletal History: Reports: Arthritis, Back Pain, Chronic, Neck Pain, Chronic Neurological History: Reports: Vertigo Psychiatric History: Reports: None Endocrine/Metabolic History: Reports: None Hematologic History: Reports: None Immunologic History: Reports: None Oncologic (Cancer) History: Reports: None Dermatologic History: Reports: None - Infectious Disease History Infectious Disease History: Reports: Chicken Pox - Past Surgical History Head Surgeries/Procedures: Reports: None HEENT Surgical History: Reports: None Cardiovascular Surgical History: Reports: None Respiratory Surgical History: Reports: None GI Surgical History: Reports: Colonoscopy Female Surgical History: Reports: Tubal Ligation Endocrine Surgical History: Reports: None Neurological Surgical History: Reports: None Musculoskeletal Surgical History: Reports: Other (See Below) Other Musculoskeletal Surgeries/Procedures:: S/P TOENAIL AVULSION Dermatological Surgical History: Reports: None Social & Family History - Family History Family Medical History: Unobtainable - Tobacco Use Tobacco Use Within Last Twelve Months: Cigarettes Packs/Tins Daily: 1 - Caffeine Use Caffeine Use: Reports: Coffee, Soda Other Caffeine Use: AVERAGE OF 2 CUPS DAILY - Alcohol Use Alcohol Use History: No - Recreational Drug Use Recreational Drug Use: No Drug Use in Last 12 Months: No ED ROS GENERAL - Review of Systems Review Of Systems: See Below Constitutional: Reports: Weakness, Fatigue HEENT: Reports: Vertigo Respiratory: Reports: Shortness of Breath Cardiovascular: Reports: Dyspnea on Exertion GI/Abdominal: Reports: Nausea (at time of episode), Vomiting (x1 at time of initial episode) Musculoskeletal: Reports: Other (weakness to bilateral lower extremities, right worse than left) Neurological: Reports: Other (neck pain r/t PMH degenerative disease) ED EXAM, NEURO - Physical Exam Exam: See Below Exam Limited By: No Limitations General Appearance: Alert, No Apparent Distress Eye Exam: Bilateral Eye: EOMI, Normal Inspection (no nystagmus), PERRL Ears: Normal External Exam, Normal Canal, Normal TMs Nose: Normal Inspection, Normal Mucosa Throat/Mouth: Normal Inspection, Normal Oropharynx, No Airway Compromise. No: Dysphagia Neck: Normal Inspection, Other. No: Non-Tender (tenderness with movement) Respiratory/Chest: No Respiratory Distress, Lungs Clear, Normal Breath Sounds, No Accessory Muscle Use, Chest Non-Tender. No: Respiratory Distress Cardiovascular: Normal Peripheral Pulses, Regular Rate, Rhythm, No Edema, No Murmur, No Rub GI/Abdominal: Normal Bowel Sounds, Soft, Non-Tender, No Distention Neurological: Alert, Normal Mood/Affect, Normal Plantar Flexion, No Motor/ Sensory Deficits, Oriented x 3 Extremities: Normal Inspection, Normal Range of Motion, Non-Tender, No Pedal Edema, Other (weakness to BLE) Skin Exam: Warm, Dry, Intact, Normal Color EKG INTERPRETATION EKG Date: 01/22/19 Time: 11:48 Rhythm: NSR Rate (Beats/Min): 90 P-Wave: Present QRS: Normal ST-T: Normal QT: Prolonged (borderline prolonged QT interval) EKG Interpretation Comments: Normal Sinus Rhythm Course - Vital Signs Last Recorded V/S: Last Vital Signs Temp 36.9 C 01/22/19 11:40 Pulse 101 H 01/22/19 11:40 Resp 8 L 01/22/19 11:40 BP 146/73 H 01/22/19 11:40 Pulse Ox 100 01/22/19 11:40 - Orders/Labs/Meds Orders: Active Orders 24 hr Category Date Time Status Blood Glucose Check, Bedside [] ONETIME Care 01/22/19 11:39 Active EKG 12 Lead [EKG Documentation Completion] [RC] STAT Care 01/22/19 11:37 Active NIH Stroke Scale [RC] ASDIRECTED Care 01/22/19 11:39 Active Peripheral IV Care [RC] . DIRECTED Care 01/22/19 11:39 Active Sodium Chloride 0.9% [Saline Flush] Med 01/22/19 11:39 Active 10 ml FLUSH ASDIRECTED PRN Peripheral IV Insertion Adult [OM.PC] Stat Oth 01/22/19 11:37 Ordered Medication Orders Sodium Chloride (Saline Flush) 10 ml FLUSH ASDIRECTED PRN PRN Reason: Keep Vein Open Last Admin: 01/22/19 11:51 Dose: 10 ml Labs: Laboratory Tests 01/22/19 01/22/19 01/22/19 Range/Units 11:46 11:46 11:46 WBC 8.3 (5.0-10.0) 10^3/uL RBC 4.94 (4.2-5.4) 10^6/uL Hgb 15.0 D (12.0-16.0) g/dL Hct 44.7 (37.0-47.0) % MCV 90.5 (80-100) fL MCH 30.4 (27.0-34.0) pg MCHC 33.6 (33.0-35.0) g/dL Plt Count 233 (150-450) 10^3/uL Neut % (Auto) 61.6 (42.2-75.2) % Lymph % (Auto) 27.0 (20.5-50.1) % Gilmer % (Auto) 9.2 H (2-8) % Eos % (Auto) 2.0 (1.0-3.0) % Baso % (Auto) 0.2 (0.0-1.0) % PT 9.6 (9.0-12.0) SEC INR 0.9 (0.9-1.2) APTT 25.6 (22.0-34.0) SEC D-Dimer, Quantitative (0-400) ng/mL Sodium 136 (135-145) mmol/L Potassium 4.1 (3.6-5.0) mmol/L Chloride 103 (101-111) mmol/L Carbon Dioxide 22.0 (21.0-31.0) mmol/L Anion Gap 15.1 BUN 22 H (7-18) mg/dL Creatinine 1.0 (0.6-1.3) mg/dL Est Cr Clr Drug Dosing TNP Estimated GFR (MDRD) 58 BUN/Creatinine Ratio 22.00 Glucose 98 (74-105) mg/dL POC Glucose (70-105) mg/dl Calcium 8.6 (8.4-10.2) mg/dl Magnesium 2.1 (1.8-2.5) mg/dL Total Bilirubin 0.5 (0.2-1.0) mg/dL AST 21 (10-42) IU/L ALT 14 (10-60) IU/L Alkaline Phosphatase 63 (42-121) IU/L Troponin I < 0.02 (0.00-0.02) ng/ml Total Protein 6.9 (6.7-8.2) g/dl Albumin 4.1 (3.2-5.5) g/dl Globulin 2.8 Albumin/Globulin Ratio 1.46 01/22/19 01/22/19 Range/Units 11:47 12:07 WBC (5.0-10.0) 10^3/uL RBC (4.2-5.4) 10^6/uL Hgb (12.0-16.0) g/dL Hct (37.0-47.0) % MCV (80-100) fL MCH (27.0-34.0) pg MCHC (33.0-35.0) g/dL Plt Count (150-450) 10^3/uL Neut % (Auto) (42.2-75.2) % Lymph % (Auto) (20.5-50.1) % Gilmer % (Auto) (2-8) % Eos % (Auto) (1.0-3.0) % Baso % (Auto) (0.0-1.0) % PT (9.0-12.0) SEC INR (0.9-1.2) APTT (22.0-34.0) SEC D-Dimer, Quantitative < 100 (0-400) ng/mL Sodium (135-145) mmol/L Potassium (3.6-5.0) mmol/L Chloride (101-111) mmol/L Carbon Dioxide (21.0-31.0) mmol/L Anion Gap BUN (7-18) mg/dL Creatinine (0.6-1.3) mg/dL Est Cr Clr Drug Dosing Estimated GFR (MDRD) BUN/Creatinine Ratio Glucose (74-105) mg/dL POC Glucose 99 (70-105) mg/dl Calcium (8.4-10.2) mg/dl Magnesium (1.8-2.5) mg/dL Total Bilirubin (0.2-1.0) mg/dL AST (10-42) IU/L ALT (10-60) IU/L Alkaline Phosphatase (42-121) IU/L Troponin I (0.00-0.02) ng/ml Total Protein (6.7-8.2) g/dl Albumin (3.2-5.5) g/dl Globulin Albumin/Globulin Ratio Meds: Medications Generic Name Dose Route Start Last Admin Trade Name Freq PRN Reason Stop Dose Admin Sodium Chloride 10 ml 01/22/19 11:39 01/22/19 11:51 Saline Flush FLUSH 10 ml ASDIRECTED PRN Administration Keep Vein Open - Radiology Interpretation Free Text/Narrative:: Head CT; no acute findings per rad report. Chest XRAY; no acute findings, see rad report. Departure - Departure Disposition: Home, Self-Care 01 Clinical Impression: Vertigo - Discharge Information *PRESCRIPTION DRUG MONITORING PROGRAM REVIEWED*: Not Applicable *COPY OF PRESCRIPTION DRUG MONITORING REPORT IN PATIENT AUSTYN: Not Applicable Instructions: Vertigo Forms: ED Department Discharge Additional Instructions: Rx: Decadron 4mg Rx: Diazepam 5mg *Do not drive while under the influence of this medication. Continue Meclizine as prescribed. Follow up with Dr. Rowell next week as scheduled. - My Orders Last 24 Hours: My Active Orders 01/22/19 11:37 EKG 12 Lead [EKG Documentation Completion] [RC] STAT Peripheral IV Insertion Adult [OM.PC] Stat 01/22/19 11:39 Blood Glucose Check, Bedside [RC] ONETIME NIH Stroke Scale [RC] ASDIRECTED Peripheral IV Care [RC] . DIRECTED Sodium Chloride 0.9% [Saline Flush] 10 ml FLUSH ASDIRECTED PRN - Assessment/Plan Last 24 Hours: My Active Orders 01/22/19 11:37 EKG 12 Lead [EKG Documentation Completion] [RC] STAT Peripheral IV Insertion Adult [OM.PC] Stat 01/22/19 11:39 Blood Glucose Check, Bedside [RC] ONETIME NIH Stroke Scale [RC] ASDIRECTED Peripheral IV Care [RC] . DIRECTED Sodium Chloride 0.9% [Saline Flush] 10 ml FLUSH ASDIRECTED PRN <Emmanuel Cervantes - Last Filed: 01/22/19 13:51> Departure - Departure Time of Disposition: 13:30 Condition: Good
--- NOTE | 2019-01-22 12:11 | CT ---
Clinical history: 53-year-old female smoker "off balance" (different than usual "vertigo"). Right leg weakness since Tuesday. Scan technique: Volume acquisition of data emergency unenhanced CT scan of the head and brain obtained with patient lying supine on the Siemens multi slice scanner [place], [place]. 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 All data archived in the PACS system for storage, reformatting and study. Interpretation: Uniformly thick bony calvarium and symmetric clear pneumatization of the mastoid and paranasal sinuses. No supratentorial or posterior fossa mass lesion this patient with underlying mirror-image normal ventricular system. Cerebellum and brainstem unremarkable. Physiologic midline pineal and symmetric choroid plexus calcifications. *Subtle asymmetric changes in the attenuation of the periventricular white matter probably related to patient rotation (technique), however, considering patient's symptomatology suggestive follow-up unenhanced MRI would be the next best least invasive diagnostic modality consider this high risk patient. No sign of acute intracerebral/intraventricular/subarachnoid bleed. No abnormal extracerebral/and cranial epidural or subdural hematoma. CONCLUSION: Negative unenhanced CT scan of the head and brain (see above)
[2019-01-22 12:32] LABS: ANION GAP 15.1; CHLORIDE,CL 103 mmol/L (101-111)
[2019-01-22 12:33] LABS: SODIUM,NA 136 mmol/L (135-145)
--- NOTE | 2019-01-22 13:27 | CR ---
Clinical history: 53-year-old female complaining of shortness of breath. Interpretation: No acute new cardiopulmonary abnormality since 20 June 2016 comparison exam. External electronic device monitor leads and down snap. Normal cardiac silhouette and left-sided aortic arch/stomach bubble. No cephalization of flow, signs of alveolar edema or dependent pleural effusion. No lung mass, hilar lymphadenopathy or focal lobar pneumonia. No atelectasis/collapse. No pneumothorax. CONCLUSION: Negative exam.
== END 2019-01-22 13:48 | disposition home or self-care (01) ==
LOC: DL.ED 11:30
DX: R42 Dizziness and giddiness (principal); J45.909 Unspecified asthma, uncomplicated; F17.210 Nicotine dependence, cigarettes, uncomplicated; E78.00 Pure hypercholesterolemia, unspecified; Z88.8 Allergy status to other drugs, medicaments and biological substances; Z79.899 Other long term (current) drug therapy
CPT/HCPCS: 36415; 70450; 71045; 80053; 82962; 83735; 84484; 85025; 85379; 85610; 85730; 93005; 99285-25

== ENCOUNTER 2019-11-02 12:14 | Emergency (ER) | payer MEDICAID ==
[2019-11-02 12:35] VITALS: BP 144/68; PULSE 86
[2019-11-02 12:58] LABS: CHLORIDE,CL 104 mmol/L (98-107); SODIUM,NA 140 mmol/L (136-145)
--- NOTE | 2019-11-02 13:28 | EDM.PDOC ---
ED HPI GENERAL MEDICAL PROBLEM - General Stated Complaint: SHARP PAIN LEFT SIDE/SLIGHT DROOPY ON MOUTH Time Seen by Provider: 11/02/19 12:45 Source of Information: Reports: Patient History Limitations: Reports: No Limitations - History of Present Illness INITIAL COMMENTS - FREE TEXT/NARRATIVE: This 54 yo female patient reports to the ED due to an acute onset of left sided pain, slurred speech and left sided facial droop. The patient reports her symptoms started this morning at about 0930, but resolved in less than 1 hour. The patient's family encouraged her to come to the ED to be evaluated. The patient reports she has been having chronic intermittent left shoulder pain and a history of a previous stroke. Onset: Today Duration: Resolved Prior to Arrival Location: Reports: Head, Upper Extremity, Left Quality: Reports: Other Severity: Moderate Improves with: Reports: Other Worsens with: Reports: None Context: Reports: Other Associated Symptoms: Reports: Weakness - Related Data Allergies Allergy/AdvReac Type Severity Reaction Status Date / Time budesonide [From Symbicort] Allergy Other Verified 11/02/19 12:28 formoterol [From Symbicort] Allergy Other Verified 11/02/19 12:28 Sulfa (Sulfonamide AdvReac Diarrhea Verified 11/02/19 12:28 Antibiotics) Home Meds: Home Meds Ibuprofen 600 mg PO Q8H PRN 06/20/16 [History] Acetaminophen [Tylenol Extra Strength] 500 mg PO DAILY 05/23/17 [History] Gabapentin [Neurontin] 300 mg PO BEDTIME 05/23/17 [History] EPINEPHrine [Epinephrine] 0.3 mg PO ASDIRECTED PRN 10/20/17 [History] Meclizine [Antivert] 12.5 mg PO BID 10/20/17 [History] Past Medical History - Past Health History Medical/Surgical History: Denies Medical/Surgical History HEENT History: Reports: None Cardiovascular History: Reports: High Cholesterol Respiratory History: Reports: Asthma Gastrointestinal History: Reports: None Genitourinary History: Reports: None 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: Musculoskeletal History: Reports: Arthritis, Back Pain, Chronic, Neck Pain, Chronic Neurological History: Reports: CVA, Vertigo Psychiatric History: Reports: None Endocrine/Metabolic History: Reports: None Hematologic History: Reports: None Immunologic History: Reports: None Oncologic (Cancer) History: Reports: None Dermatologic History: Reports: None - Infectious Disease History Infectious Disease History: Reports: Chicken Pox - Past Surgical History Head Surgeries/Procedures: Reports: None HEENT Surgical History: Reports: None Cardiovascular Surgical History: Reports: None Respiratory Surgical History: Reports: None GI Surgical History: Reports: Colonoscopy Female Surgical History: Reports: Tubal Ligation Endocrine Surgical History: Reports: None Neurological Surgical History: Reports: None Musculoskeletal Surgical History: Reports: Other (See Below) Other Musculoskeletal Surgeries/Procedures:: S/P TOENAIL AVULSION Dermatological Surgical History: Reports: None Social & Family History - Family History Family Medical History: Unobtainable - Tobacco Use Smoking Status *Q: Heavy Tobacco Smoker Years of Tobacco use: 20 Packs/Tins Daily: 1 - Caffeine Use Caffeine Use: Reports: Coffee Other Caffeine Use: AVERAGE OF 2 CUPS DAILY - Recreational Drug Use Recreational Drug Use: No ED ROS GENERAL - Review of Systems Review Of Systems: Comprehensive ROS is negative, except as noted in HPI. ED EXAM, NEURO - Physical Exam Exam: See Below Exam Limited By: No Limitations General Appearance: Alert, WD/WN, Mild Distress Eye Exam: Bilateral Eye: EOMI, Normal Inspection, PERRL Ears: Normal External Exam, Normal Canal, Hearing Grossly Normal, Normal TMs Nose: Normal Inspection, Normal Mucosa, No Blood Throat/Mouth: Normal Inspection, Normal Lips, Normal Teeth, Normal Gums, Normal Oropharynx, Normal Voice, No Airway Compromise Head Exam: Atraumatic, Normocephalic Neck: Normal Inspection, Supple, Non-Tender, Full Range of Motion Respiratory/Chest: No Respiratory Distress, Lungs Clear, Normal Breath Sounds, No Accessory Muscle Use, Chest Non-Tender Cardiovascular: Normal Peripheral Pulses, Regular Rate, Rhythm, No Edema, No Gallop, No JVD, No Murmur, No Rub GI/Abdominal: Normal Bowel Sounds, Soft, Non-Tender, No Organomegaly, No Distention, No Abnormal Bruit, No Mass (Female) Exam: Deferred Rectal (Female) Exam: Deferred Neurological: Alert, Normal Mood/Affect, Normal Dorsiflexion, CN II-XII Intact, Normal Plantar Flexion, Normal Gait, Normal Reflexes, No Motor/Sensory Deficits , Oriented x 3 Back Exam: Normal Inspection, Full Range of Motion, NT Extremities: Normal Inspection, Normal Range of Motion, Non-Tender, No Pedal Edema, Normal Capillary Refill Psychiatric: Normal Affect, Anxious Skin Exam: Warm, Dry, Intact, Normal Color, No Rash Course - Vital Signs Last Recorded V/S: Last Vital Signs Temp 36.8 C 11/02/19 12:32 Pulse 86 11/02/19 12:32 Resp 15 11/02/19 12:32 BP 144/68 H 11/02/19 12:32 Pulse Ox 100 11/02/19 12:32 - Orders/Labs/Meds Orders: Active Orders 24 hr Category Date Time Status EKG Documentation Completion [RC] URGENT Care 11/02/19 12:22 Active Labs: Laboratory Tests 11/02/19 11/02/19 Range/Units 12:31 12:31 WBC 5.7 (5.0-10.0) 10^3/uL RBC 4.21 (4.2-5.4) 10^6/uL Hgb 12.8 D (12.0-16.0) g/dL Hct 38.3 (37.0-47.0) % MCV 91.0 (80-100) fL MCH 30.4 (27.0-34.0) pg MCHC 33.4 (33.0-35.0) g/dL Plt Count 225 (150-450) 10^3/uL Neut % (Auto) 55.6 (42.2-75.2) % Lymph % (Auto) 32.9 (20.5-50.1) % Woodruff % (Auto) 9.2 H (2-8) % Eos % (Auto) 1.8 (1.0-3.0) % Baso % (Auto) 0.5 (0.0-1.0) % Sodium 140 (136-145) mmol/L Potassium 4.0 (3.5-5.1) mmol/L Chloride 104 (98-107) mmol/L Carbon Dioxide 27 (21-32) mmol/L Anion Gap 13.0 (7-13) mEq/L BUN 17 (7-18) mg/dL Creatinine 1.15 H (0.55-1.02) mg/dL Est Cr Clr Drug Dosing 47.17 mL/min Estimated GFR (MDRD) 49 BUN/Creatinine Ratio 14.8 (No establ ref range) Glucose 103 H (74-99) mg/dL Calcium 8.5 (8.5-10.1) mg/dL Total Bilirubin 0.2 (0.2-1.0) mg/dL AST 14 L (15-37) U/L ALT 24 (14-59) U/L Alkaline Phosphatase 82 (46-116) U/L Troponin I < 0.017 (0.000-0.056) ng/mL Total Protein 6.8 (6.4-8.2) g/dL Albumin 3.8 (3.4-5.0) g/dL Globulin 3.0 Albumin/Globulin Ratio 1.3 Departure - Departure Time of Disposition: 13:36 Disposition: Home, Self-Care 01 Condition: Fair Clinical Impression: TIA (transient ischemic attack) - Discharge Information *PRESCRIPTION DRUG MONITORING PROGRAM REVIEWED*: Not Applicable *COPY OF PRESCRIPTION DRUG MONITORING REPORT IN PATIENT AUSTYN: Not Applicable Instructions: Transient Ischemic Attack, [id number] Forms: ED Department Discharge Care Plan Goals: The patient was advised of the examination, lab, EKG and CT results during the visit. The patient was encouraged to continue to monitor for any additional symptoms or concerns. If the patient has any additional symptoms or concerns, the patient should either return to the emergency department or visit her primary care facility. Sepsis Event Note - Evaluation Sepsis Screening Result: No Definite Risk - Focused Exam Vital Signs: Vital Signs Temp Pulse Resp BP Pulse Ox 11/02/19 12:32 36.8 C 86 15 144/68 H 100 Date Exam was Performed: 11/02/19 Time Exam was Performed: 13:38 - My Orders Last 24 Hours: My Active Orders 11/02/19 12:22 EKG Documentation Completion [RC] URGENT - Assessment/Plan Last 24 Hours: My Active Orders 11/02/19 12:22 EKG Documentation Completion [RC] URGENT
== END 2019-11-02 13:48 | disposition home or self-care (01) ==
LOC: DL.ED 12:14
DX: G45.9 Transient cerebral ischemic attack, unspecified (principal); F17.210 Nicotine dependence, cigarettes, uncomplicated; Z88.2 Allergy status to sulfonamides; Z88.8 Allergy status to other drugs, medicaments and biological substances; Z86.73 Personal history of transient ischemic attack (TIA), and cerebral infarction without residual deficits
CPT/HCPCS: 36415; 70450; 80053; 84484; 85025; 93005; 99285-25

== ENCOUNTER 2020-03-16 12:00 | Emergency (ER) | payer MEDICAID ==
[2020-03-16 12:10] VITALS: BP 118/70; PULSE 91
[2020-03-16] MEDS ORDERED: Sodium Chloride 0.9% 10 ML Syringe FLUSH PRN (12:24)
[2020-03-16] MEDS ORDERED: Iopamidol 612 MG/ML 100 ML Bottle IVPUSH ONE (12:26)
[2020-03-16 13:01] LABS: ANION GAP 12.3 mEq/L (7-13)
--- NOTE | 2020-03-16 13:11 | EDM.PDOC ---
ED HPI GENERAL MEDICAL PROBLEM - General Chief Complaint: Gastrointestinal Problem Stated Complaint: SORE STOMACH - PASSED OUT AND FELL Time Seen by Provider: 03/16/20 12:15 Source of Information: Reports: Patient, RN, RN Notes Reviewed History Limitations: Reports: No Limitations - History of Present Illness INITIAL COMMENTS - FREE TEXT/NARRATIVE: Patient presents to ER with complaint of lower abdominal pain. Patient states she has had some difficulties with cramping and constipation. Patient states last evening she was bearing down and straining to have a bowel movement, became very hot and sweaty and passed out in her bathroom. Patient states she did hit her head on the way down, and reported to her that she was unconscious for some time. Ambulance was called to their home and she was evaluated but not transferred to the ER. Patient states she has had bowel movements but very small amounts of hard george. No diarrhea. Admits to nausea but denies vo miting. States she has been hot and cold but is unsure if she has had a fever. Patient states this all began 1 to 2 years ago after having a colonoscopy. Patient states she eats yogurt on a daily basis to help with her bowel movements. Onset: Sudden Bilateral Lower Abdominal Pain Score (Numeric/FACES): 9 - Related Data Allergies Allergy/AdvReac Type Severity Reaction Status Date / Time budesonide [From Symbicort] Allergy Other Verified 03/16/20 12:14 formoterol [From Symbicort] Allergy Other Verified 03/16/20 12:14 Sulfa (Sulfonamide AdvReac Diarrhea Verified 03/16/20 12:14 Antibiotics) Home Meds: Home Meds Acetaminophen [Tylenol Extra Strength] 500 mg PO DAILY 05/23/17 [History] Gabapentin [Neurontin] 300 mg PO BEDTIME 05/23/17 [History] EPINEPHrine [Epinephrine] 0.3 mg PO ASDIRECTED PRN 10/20/17 [History] Meclizine [Antivert] 12.5 mg PO DAILY 10/20/17 [History] Cyclobenzaprine [Flexeril] 5 mg PO DAILY 03/16/20 [History] Past Medical History - Past Health History Medical/Surgical History: Denies Medical/Surgical History HEENT History: Reports: None Cardiovascular History: Reports: High Cholesterol Respiratory History: Reports: Asthma Gastrointestinal History: Reports: None Genitourinary History: Reports: None 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: Musculoskeletal History: Reports: Arthritis, Back Pain, Chronic, Neck Pain, Chronic Neurological History: Reports: CVA, Vertigo Psychiatric History: Reports: None Endocrine/Metabolic History: Reports: None Hematologic History: Reports: None Immunologic History: Reports: None Oncologic (Cancer) History: Reports: None Dermatologic History: Reports: None - Infectious Disease History Infectious Disease History: Reports: Chicken Pox - Past Surgical History Head Surgeries/Procedures: Reports: None HEENT Surgical History: Reports: None Cardiovascular Surgical History: Reports: None Respiratory Surgical History: Reports: None GI Surgical History: Reports: Colonoscopy Female Surgical History: Reports: Tubal Ligation Endocrine Surgical History: Reports: None Neurological Surgical History: Reports: None Musculoskeletal Surgical History: Reports: Other (See Below) Other Musculoskeletal Surgeries/Procedures:: S/P TOENAIL AVULSION Dermatological Surgical History: Reports: None Social & Family History - Family History Family Medical History: Unobtainable - Tobacco Use Smoking Status *Q: Current Every Day Smoker Years of Tobacco use: 30 Packs/Tins Daily: 0.5 Second Hand Smoke Exposure: Yes - Caffeine Use Caffeine Use: Reports: Coffee Other Caffeine Use: AVERAGE OF 2 CUPS DAILY - Recreational Drug Use Recreational Drug Use: No ED ROS GENERAL - Review of Systems Review Of Systems: Comprehensive ROS is negative, except as noted in HPI. ED EXAM, GI/ABD - Physical Exam Exam: See Below Exam Limited By: No Limitations General Appearance: Alert, WD/WN, Mild Distress Eyes: Bilateral: Normal Appearance, EOMI Ears: Normal External Exam, Hearing Grossly Normal Nose: Normal Inspection Throat/Mouth: Normal Inspection, Normal Voice, No Airway Compromise Head: Atraumatic, Normocephalic Neck: Normal Inspection, Supple, Non-Tender, Full Range of Motion Respiratory/Chest: No Respiratory Distress, Lungs Clear, Normal Breath Sounds, No Accessory Muscle Use, Chest Non-Tender Cardiovascular: Normal Peripheral Pulses, Regular Rate, Rhythm, No Edema, No Gallop, No JVD, No Murmur, No Rub GI/Abdominal Exam: Normal Bowel Sounds, Soft, Tender (lower quadrants) (Female) Exam: Deferred Rectal (Female) Exam: Deferred Back Exam: Normal Inspection, Full Range of Motion, NT Extremities: Normal Inspection, Normal Range of Motion, Non-Tender, Normal Capillary Refill, No Pedal Edema Neurological: Alert, Oriented, CN II-XII Intact, Normal Cognition, Normal Gait, Normal Reflexes, No Motor/Sensory Deficits Psychiatric: Normal Affect, Normal Mood Skin Exam: Warm, Dry, Intact, Normal Color, No Rash Lymphatic: No Adenopathy Course - Vital Signs Last Recorded V/S: Last Vital Signs Temp 99.5 F 03/16/20 12:04 Pulse 91 03/16/20 12:04 Resp 18 03/16/20 12:04 BP 118/70 03/16/20 12:04 Pulse Ox 100 03/16/20 12:04 - Orders/Labs/Meds Orders: Active Orders 24 hr Category Date Time Status Peripheral IV Care [RC] . DIRECTED Care 03/16/20 12:26 Active UA RFX ROXY AND CULT IF INDIC [URIN] Stat Lab 03/16/20 12:25 Ordered Sodium Chloride 0.9% [Saline Flush] Med 03/16/20 12:24 Active 10 ml FLUSH ASDIRECTED PRN Peripheral IV Insertion Adult [OM.PC] Stat Oth 03/16/20 12:24 Ordered Medication Orders Sodium Chloride (Saline Flush) 10 ml FLUSH ASDIRECTED PRN PRN Reason: Keep Vein Open Labs: Laboratory Tests 03/16/20 03/16/20 03/16/20 Range/Units 12:34 12:34 12:34 WBC 10.6 H (5.0-10.0) 10^3/uL RBC 4.89 (4.2-5.4) 10^6/uL Hgb 14.4 D (12.0-16.0) g/dL Hct 43.5 (37.0-47.0) % MCV 89.0 (80-100) fL MCH 29.4 (27.0-34.0) pg MCHC 33.1 (33.0-35.0) g/dL Plt Count 262 (150-450) 10^3/uL Neut % (Auto) 85.0 H (42.2-75.2) % Lymph % (Auto) 9.9 L (20.5-50.1) % Barry % (Auto) 4.8 (2-8) % Eos % (Auto) 0.2 L (1.0-3.0) % Baso % (Auto) 0.1 (0.0-1.0) % Sodium 137 (136-145) mmol/L Potassium 4.3 (3.5-5.1) mmol/L Chloride 102 (98-107) mmol/L Carbon Dioxide 27 (21-32) mmol/L Anion Gap 12.3 (7-13) mEq/L BUN 17 (7-18) mg/dL Creatinine 1.10 H (0.55-1.02) mg/dL Est Cr Clr Drug Dosing 49.31 mL/min Estimated GFR (MDRD) 51 BUN/Creatinine Ratio 15.5 (No establ ref range) Glucose 120 H (74-99) mg/dL Lactic Acid 1.0 (0.4-2.0) mmol/L Calcium 8.8 (8.5-10.1) mg/dL Total Bilirubin 0.3 (0.2-1.0) mg/dL AST 16 (15-37) U/L ALT 24 (14-59) U/L Alkaline Phosphatase 76 (46-116) U/L Total Protein 7.7 (6.4-8.2) g/dL Albumin 4.2 (3.4-5.0) g/dL Globulin 3.5 Albumin/Globulin Ratio 1.2 Meds: Medications Generic Name Dose Route Start Last Admin Trade Name Freq PRN Reason Stop Dose Admin Sodium Chloride 10 ml 03/16/20 12:24 Saline Flush FLUSH ASDIRECTED PRN Keep Vein Open Discontinued Medications Generic Name Dose Route Start Last Admin Trade Name Freq PRN Reason Stop Dose Admin Iopamidol 100 ml 03/16/20 12:26 03/16/20 13:54 Isovue-300 (61%) IVPUSH 03/16/20 12:27 75 ml ONETIME ONE Administration - Radiology Interpretation Free Text/Narrative:: Head CT wo contrast: PROCEDURE INFORMATION: Exam: CT Head Without Contrast Exam date and time: 03/16/2020 1:18 PM Age: 54 years old Clinical indication: Other: Passed out hit head, loc; Additional info: Passed out, hit head, loc TECHNIQUE: Imaging protocol: Computed tomography of the head without contrast. Radiation optimization: All CT scans at this facility use at least one of these dose optimization techniques: automated exposure control; mA and/or kV adjustment per patient size (includes targeted exams where dose is matched to clinical indication); or iterative reconstruc tion. COMPARISON: CT Head wo Cont 11/02/2019 12:37 PM FINDINGS: Brain: There is no evidence of acute hemorrhage within the brain parenchyma or the subarachnoid space. Ventricles: There is no significant ventricular effacement or midline shift. The ventricular system is normal in size and distribution. Bones/joints: The skull is normal. Sinuses: The visualized portions of the sinuses are normal. Mastoid air cells: The mastoid sinuses are normal. Orbits: The orbits are normal. Soft tissues: The extracranial soft tissues are normal. IMPRESSION: No acute abnormality. Thank you for allowing us to participate in the care of your patient. Dictated and Authenticated by: Jose Antonio Cheung MD 03/16/2020 1:56 PM Central Time ([place] & [place]) CT Abdomen/Pelvis with contrast: PROCEDURE INFORMATION: Exam: CT Abdomen And Pelvis With Contrast Exam date and time: 03/16/2020 1:32 PM Age: 54 years old Clinical indication: Abdominal pain; Additional info: Lower abdominal pain, constipation, R/O obstructio TECHNIQUE: Imaging protocol: Computed tomography of the abdomen and pelvis with intravenous contrast. Radiation optimization: All CT scans at this facility use at least one of these dose optimization techniques: automated exposure control; mA and/or kV adjustment per patient size (includes targeted exams where dose is matched to clinical indication); or iterative reconstruction. Contrast material: ISOVUE; Contrast volume: 75 ml; Contrast route: INTRAVENOUS (IV); COMPARISON: No relevant prior studies available. FINDINGS: Lungs: The visualized portions of the lung bases are normal. Mediastinal space: A small hiatal hernia is demonstrated posterior to the heart. Liver: The liver is normal. Gallbladder and bile ducts: The gallbladder is normal. Pancreas: The pancreas is normal. Spleen: The spleen is normal. Adrenals: The adrenal glands are normal. Kidneys and ureters: There is a 4 mm calcification in the lower pole calyx of the right kidney. No obstruction is seen. The ureters are normal. Stomach and bowel: No over distention of bowel loops is seen. Appendix: A normal appendix is identified. Intraperitoneal space: No evidence of intraperitoneal free air. Vasculature: The vasculature demonstrates diffuse mild atherosclerotic calcification. Lymph nodes: No pathologic lymph node enlargement is demonstrated. Bladder: The bladder is normal. Reproductive: There are small rounded areas of decreased attenuation in the uterus which may represent small fibroids. Bones/joints: Unremarkable Soft tissues: The extra-abdominal soft tissues are normal. IMPRESSION: No acute abnormality. Thank you for allowing us to participate in the care of your patient. Dictated and Authenticated by: Jose Antonio Cheung MD 03/16/2020 1:55 PM Central Time ([place] & [place]) See rad report Departure - Departure Time of Disposition: 14:07 Disposition: Home, Self-Care 01 Condition: Fair Clinical Impression: Uterine fibroid Qualifiers: Uterine leiomyoma location: unspecified location Qualified Code(s): D25.9 - Leiomyoma of uterus, unspecified Constipation Qualifiers: Constipation type: unspecified constipation type Qualified Code(s): K59.00 - C onstipation, unspecified - Discharge Information *PRESCRIPTION DRUG MONITORING PROGRAM REVIEWED*: No *COPY OF PRESCRIPTION DRUG MONITORING REPORT IN PATIENT AUSTYN: No Instructions: Constipation, Adult, [id number], Uterine Fibroids, [id number], Abdominal Pain, Adult, [id number] Forms: ED Department Discharge Additional Instructions: Drink plenty of water May use MiraLAX [id number] for constipation Follow-up with your primary care provider Do not strain for bowel movement May use [id number] fleets enema if necessary Sepsis Event Note (ED) - Evaluation Sepsis Screening Result: No Definite Risk - Focused Exam Vital Signs: Vital Signs Temp Pulse Resp BP Pulse Ox 03/16/20 12:04 99.5 F 91 18 118/70 100 - My Orders Last 24 Hours: My Active Orders 03/16/20 12:24 Sodium Chloride 0.9% [Saline Flush] 10 ml FLUSH ASDIRECTED PRN Peripheral IV Insertion Adult [OM.PC] Stat 03/16/20 12:25 UA RFX ROXY AND CULT IF INDIC [URIN] Stat 03/16/20 12:26 Peripheral IV Care [RC] . DIRECTED - Assessment/Plan Last 24 Hours: My Active Orders 03/16/20 12:24 Sodium Chloride 0.9% [Saline Flush] 10 ml FLUSH ASDIRECTED PRN Peripheral IV Insertion Adult [OM.PC] Stat 03/16/20 12:25 UA RFX ROXY AND CULT IF INDIC [URIN] Stat 03/16/20 12:26 Peripheral IV Care [RC] . DIRECTED
--- NOTE | 2020-03-16 13:55 | CT ---
PROCEDURE INFORMATION: Exam: CT Abdomen And Pelvis With Contrast Exam date and time: 03/16/2020 1:32 PM Age: 54 years old Clinical indication: Abdominal pain; Additional info: Lower abdominal pain, constipation, R/O obstructio TECHNIQUE: Imaging protocol: Computed tomography of the abdomen and pelvis with intravenous contrast. Radiation optimization: All CT scans at this facility use at least one of these dose optimization techniques: automated exposure control; mA and/or kV adjustment per patient size (includes targeted exams where dose is matched to clinical indication); or iterative reconstruction. Contrast material: ISOVUE; Contrast volume: 75 ml; Contrast route: INTRAVENOUS (IV); COMPARISON: No relevant prior studies available. FINDINGS: Lungs: The visualized portions of the lung bases are normal. Mediastinal space: A small hiatal hernia is demonstrated posterior to the heart. Liver: The liver is normal. Gallbladder and bile ducts: The gallbladder is normal. Pancreas: The pancreas is normal. Spleen: The spleen is normal. Adrenals: The adrenal glands are normal. Kidneys and ureters: There is a 4 mm calcification in the lower pole calyx of the right kidney. No obstruction is seen. The ureters are normal. Stomach and bowel: No over distention of bowel loops is seen. Appendix: A normal appendix is identified. Intraperitoneal space: No evidence of intraperitoneal free air. Vasculature: The vasculature demonstrates diffuse mild atherosclerotic calcification. Lymph nodes: No pathologic lymph node enlargement is demonstrated. Bladder: The bladder is normal. Reproductive: There are small rounded areas of decreased attenuation in the uterus which may represent small fibroids. Bones/joints: Unremarkable Soft tissues: The extra-abdominal soft tissues are normal. IMPRESSION: No acute abnormality.
--- NOTE | 2020-03-16 13:56 | CT ---
PROCEDURE INFORMATION: Exam: CT Head Without Contrast Exam date and time: 03/16/2020 1:18 PM Age: 54 years old Clinical indication: Other: Passed out hit head, loc; Additional info: Passed out, hit head, loc TECHNIQUE: Imaging protocol: Computed tomography of the head without contrast. Radiation optimization: All CT scans at this facility use at least one of these dose optimization techniques: automated exposure control; mA and/or kV adjustment per patient size (includes targeted exams where dose is matched to clinical indication); or iterative reconstruction. COMPARISON: CT Head wo Cont 11/02/2019 12:37 PM FINDINGS: Brain: There is no evidence of acute hemorrhage within the brain parenchyma or the subarachnoid space. Ventricles: There is no significant ventricular effacement or midline shift. The ventricular system is normal in size and distribution. Bones/joints: The skull is normal. Sinuses: The visualized portions of the sinuses are normal. Mastoid air cells: The mastoid sinuses are normal. Orbits: The orbits are normal. Soft tissues: The extracranial soft tissues are normal. IMPRESSION: No acute abnormality.
== END 2020-03-16 14:22 | disposition home or self-care (01) ==
LOC: DL.ED 12:00
DX: D25.9 Leiomyoma of uterus, unspecified (principal); K59.00 Constipation, unspecified; F17.210 Nicotine dependence, cigarettes, uncomplicated; Z88.2 Allergy status to sulfonamides; Z88.8 Allergy status to other drugs, medicaments and biological substances; Z79.899 Other long term (current) drug therapy; Z86.73 Personal history of transient ischemic attack (TIA), and cerebral infarction without residual deficits; Z98.890 Other specified postprocedural states; Z98.51 Tubal ligation status
CPT/HCPCS: 36415; 70450; 74177; 80053; 83605; 85025; 99283; 99284; Q9967

== ENCOUNTER 2021-04-18 12:58 | Emergency (ER) | payer MEDICAID ==
[2021-04-18 13:23] VITALS: BP 132/62; PULSE 106
--- NOTE | 2021-04-18 15:12 | EDM.PDOC ---
ED HPI GENERAL MEDICAL PROBLEM - General Chief Complaint: ENT Problem Stated Complaint: COVID EXPOSURE, BODY ACHE, FEVER, EARS & JAW HURT Time Seen by Provider: 04/18/21 15:00 Source of Information: Reports: Patient, RN, RN Notes Reviewed History Limitations: Reports: No Limitations - History of Present Illness INITIAL COMMENTS - FREE TEXT/NARRATIVE: Patient is a 55-year-old female who presents to ER with complaints of body aches that began yesterday as well as a fever last night. Patient states on 04/13/2021 she was exposed to COVID. Began having symptoms on 04/17/2021. Patient also reports that her ears are itchy and feel full. States she has a history of sinusitis. Patient denies any shortness of breath, chest pains, nausea, vomiting, diarrhea. Onset: Gradual Ear Pain Score (Numeric/FACES): 8 - Related Data Allergies Allergy/AdvReac Type Severity Reaction Status Date / Time budesonide [From Symbicort] Allergy Other Verified 04/18/21 13:22 formoterol [From Symbicort] Allergy Other Verified 04/18/21 13:22 Sulfa (Sulfonamide AdvReac Diarrhea Verified 04/18/21 13:22 Antibiotics) Home Meds: Home Meds Acetaminophen [Tylenol Extra Strength] 500 mg PO DAILY 05/23/17 [History] Gabapentin [Neurontin] 300 mg PO BEDTIME 05/23/17 [History] EPINEPHrine [Epinephrine] 0.3 mg PO ASDIRECTED PRN 10/20/17 [History] Meclizine [Antivert] 12.5 mg PO DAILY 10/20/17 [History] Cyclobenzaprine [Flexeril] 5 mg PO DAILY 03/16/20 [History] Past Medical History - Past Health History Medical/Surgical History: Denies Medical/Surgical History HEENT History: Reports: None Cardiovascular History: Reports: High Cholesterol Respiratory History: Reports: Asthma Gastrointestinal History: Reports: None Genitourinary History: Reports: None 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: Musculoskeletal History: Reports: Arthritis, Back Pain, Chronic, Neck Pain, Chronic Neurological History: Reports: CVA, Vertigo Psychiatric History: Reports: None Endocrine/Metabolic History: Reports: None Hematologic History: Reports: None Immunologic History: Reports: None Oncologic (Cancer) History: Reports: None Dermatologic History: Reports: None - Infectious Disease History Infectious Disease History: Reports: Chicken Pox - Past Surgical History Head Surgeries/Procedures: Reports: None HEENT Surgical History: Reports: None Cardiovascular Surgical History: Reports: None Respiratory Surgical History: Reports: None GI Surgical History: Reports: Colonoscopy Female Surgical History: Reports: Tubal Ligation Endocrine Surgical History: Reports: None Neurological Surgical History: Reports: None Musculoskeletal Surgical History: Reports: Other (See Below) Other Musculoskeletal Surgeries/Procedures:: S/P TOENAIL AVULSION Dermatological Surgical History: Reports: None Social & Family History - Family History Family Medical History: Unobtainable - Tobacco Use Tobacco Use Status *Q: Current Every Day Tobacco User Years of Tobacco use: 40 Packs/Tins Daily: 1 - Caffeine Use Caffeine Use: Reports: Coffee, Soda Other Caffeine Use: AVERAGE OF 2 CUPS DAILY - Recreational Drug Use Recreational Drug Use: No ED ROS GENERAL - Review of Systems Review Of Systems: Comprehensive ROS is negative, except as noted in HPI. ED EXAM, GENERAL - Physical Exam Exam: See Below Exam Limited By: No Limitations General Appearance: Alert, WD/WN, No Apparent Distress Eye Exam: Bilateral Eye: EOMI, Normal Inspection Ears: Normal External Exam, Normal Canal, Hearing Grossly Normal, Normal TMs Nose: Normal Inspection Throat/Mouth: Normal Inspection, Normal Voice, No Airway Compromise Head: Atraumatic, Normocephalic Neck: Normal Inspection, Supple, Non-Tender, Full Range of Motion Respiratory/Chest: No Respiratory Distress, Lungs Clear, Normal Breath Sounds, No Accessory Muscle Use, Chest Non-Tender Cardiovascular: Normal Peripheral Pulses, Regular Rate, Rhythm, No Edema, No Gallop, No JVD, No Murmur, No Rub Peripheral Pulses: 2+: Radial (L), Radial (R) GI/Abdominal: Normal Bowel Sounds, Soft, Non-Tender (Female) Exam: Deferred Rectal (Female) Exam: Deferred Back Exam: Normal Inspection, Full Range of Motion Extremities: Normal Inspection, Normal Range of Motion, Non-Tender, Normal Capillary Refill, No Pedal Edema Neurological: Alert, Oriented, Normal Cognition, Normal Gait, No Motor/Sensory Deficits Psychiatric: Normal Affect, Normal Mood Skin Exam: Warm, Dry, Intact, Normal Color, No Rash Lymphatic: No Adenopathy Course - Vital Signs Last Recorded V/S: Last Vital Signs Temp 99.1 F 04/18/21 13:19 Pulse 106 H 04/18/21 13:19 Resp 16 04/18/21 13:19 BP 132/62 04/18/21 13:19 Pulse Ox 98 04/18/21 13:19 - Orders/Labs/Meds Orders: Active Orders 24 hr Category Date Time Status Isolation [COMM] Routine Oth 04/18/21 13:00 Active Labs: Laboratory Tests 04/18/21 Range/Units 13:25 SARS-CoV-2 RNA (TIO) Positive H (NEGATIVE) Departure - Departure Time of Disposition: 15:11 Disposition: Home, Self-Care 01 Condition: Good Clinical Impression: COVID-19 - Discharge Information *PRESCRIPTION DRUG MONITORING PROGRAM REVIEWED*: No *COPY OF PRESCRIPTION DRUG MONITORING REPORT IN PATIENT AUSTYN: No Instructions: What You Should Know About COVID-19 to Protect Yourself and Others - CDC, COVID-19 Frequently Asked Questions, 10 Things You Can Do to Manage Your COVID-19 Symptoms at Home - [facility] (02/20/2020), COVID-19: Quarantine vs. Isolation - [facility] (08/07/2020), Similarities and Differences Between Flu and COVID-19 - [facility], COVID-19: What to Do if You Are Sick - [facility] (08/21/2020) Additional Instructions: You may use suet-sgb-[id number] decongestants as directed Drink plenty of water May use Tylenol and/or ibuprofen as directed for pain/fever Rest Quarantine for 10 days Return to the ER with any worsening of symptoms Sepsis Event Note (ED) - Focused Exam Vital Signs: Vital Signs Temp Pulse Resp BP Pulse Ox 04/18/21 13:19 99.1 F 106 H 16 132/62 98 - My Orders Last 24 Hours: My Active Orders 04/18/21 13:00 Isolation [COMM] Routine - Assessment/Plan Last 24 Hours: My Active Orders 04/18/21 13:00 Isolation [COMM] Routine
== END 2021-04-18 15:20 | disposition home or self-care (01) ==
LOC: DL.ED 12:58
DX: U07.1 COVID-19 (principal); E78.00 Pure hypercholesterolemia, unspecified; J45.909 Unspecified asthma, uncomplicated; Z72.0 Tobacco use; Z86.73 Personal history of transient ischemic attack (TIA), and cerebral infarction without residual deficits; Z88.2 Allergy status to sulfonamides; Z88.8 Allergy status to other drugs, medicaments and biological substances
CPT/HCPCS: 87804; 99283; U0002

== ENCOUNTER 2025-05-28 17:55 | Emergency (ER) | payer MEDICAID ==
[2025-05-28 18:27] LABS: APPEARANCE,URINE CLOUDY (CLEAR); GLUCOSE,URINE NEGATIVE (NEGATIVE); OCCULT BLOOD,URINE MODERATE (NEGATIVE)
[2025-05-28 18:38] LABS: EPITHELIAL CELLS,URINE MODERATE /HPF (NOT SEEN)
[2025-05-28] MEDS: Ondansetron 4 MG/2 ML SDV IVPUSH ONE (18:38)
[2025-05-28] MEDS: Amoxicillin/Clavulanate K 875-125 MG Tab PO ONE (19:14)
[2025-05-28] MEDS: Take Home: Ondansetron 4 MG Tab.DIS, 5 Tab Pack PO ONE (20:15)
[2025-05-28 20:37] VITALS: BP 133/74; PULSE 78
== END 2025-05-28 20:20 | disposition home or self-care (01) ==
LOC: DL.ED 17:55
DX: R42 Dizziness and giddiness (principal); N30.01 Acute cystitis with hematuria; F17.200 Nicotine dependence, unspecified, uncomplicated; Z88.2 Allergy status to sulfonamides; Z88.8 Allergy status to other drugs, medicaments and biological substances; Z79.899 Other long term (current) drug therapy; Z86.16 Personal history of COVID-19
CPT/HCPCS: 81001; 87086; 87088; 87186; 96361; 96374; 96375; 99284-25; A9270-GY; J2405; J3360; J7030; Q0162

== ENCOUNTER 2025-06-07 18:36 | Emergency (ER) | payer MEDICAID ==
[2025-06-07 18:52] LABS: APPEARANCE,URINE SLIGHTLY CLOUDY (CLEAR); GLUCOSE,URINE NEGATIVE (NEGATIVE); OCCULT BLOOD,URINE MODERATE (NEGATIVE)
[2025-06-07 19:01] LABS: EPITHELIAL CELLS,URINE FEW /HPF (NOT SEEN)
[2025-06-07] MEDS: cefTRIAXone 1 GM, Lidocaine 1% 2.1 ML IM ONE (19:11)
[2025-06-07] MEDS: Amoxicillin/Clavulanate K 875-125 MG Tab PO ONE (19:19)
[2025-06-07 19:35] VITALS: BP 131/79; PULSE 98
== END 2025-06-07 19:33 | disposition home or self-care (01) ==
LOC: DL.ED 18:36
DX: N30.01 Acute cystitis with hematuria (principal); Z88.8 Allergy status to other drugs, medicaments and biological substances; Z88.2 Allergy status to sulfonamides; Z86.16 Personal history of COVID-19
CPT/HCPCS: 81001; 87086; 87088; 87186; 96372; 99283; 99284; J0696; J2003

== ENCOUNTER 2025-06-30 15:01 | Emergency (ER) | payer MEDICAID ==
[2025-06-30 15:07] VITALS: BP 139/60; PULSE 110
[2025-06-30 15:20] LABS: APPEARANCE,URINE CLEAR (CLEAR); GLUCOSE,URINE NEGATIVE (NEGATIVE); OCCULT BLOOD,URINE TRACE-INTACT (NEGATIVE)
[2025-06-30 15:30] LABS: EPITHELIAL CELLS,URINE FEW /HPF (NOT SEEN)
[2025-06-30] MEDS: cefTRIAXone 1 GM, Lidocaine 1% 2.1 ML IM ONE (15:39)
[2025-06-30] MEDS: Take Home: Phenazopyridine 95 MG Tab, 4 Tab Pack PO ONE (15:40)
[2025-06-30] MEDS: Take Home: Ciprofloxacin HCl 500 MG, 6 Tab Pack PO ONE (15:43)
== END 2025-06-30 15:44 | disposition home or self-care (01) ==
LOC: DL.ED 15:01
DX: N30.01 Acute cystitis with hematuria (principal); E78.00 Pure hypercholesterolemia, unspecified; J45.909 Unspecified asthma, uncomplicated; Z88.8 Allergy status to other drugs, medicaments and biological substances; Z79.899 Other long term (current) drug therapy; Z86.16 Personal history of COVID-19
CPT/HCPCS: 81001; 87086; 87088; 87186; 96372; 99283; A9270; J0696; J2003

== ENCOUNTER 2025-08-04 16:09 | Emergency (ER) | payer MEDICAID ==
[2025-08-04 16:28] VITALS: BP 136/62; PULSE 100
[2025-08-04 16:34] LABS: APPEARANCE,URINE CLEAR (CLEAR); GLUCOSE,URINE NEGATIVE (NEGATIVE); OCCULT BLOOD,URINE TRACE-INTACT (NEGATIVE)
[2025-08-04 16:44] LABS: EPITHELIAL CELLS,URINE FEW /HPF (NOT SEEN)
[2025-08-04] MEDS: Take Home: Cephalexin 500 MG Cap, 6 Cap Pack PO ONE (17:02)
== END 2025-08-04 17:00 | disposition home or self-care (01) ==
LOC: DL.ED 16:09
DX: N39.0 Urinary tract infection, site not specified (principal); J45.909 Unspecified asthma, uncomplicated; Z88.8 Allergy status to other drugs, medicaments and biological substances; Z88.2 Allergy status to sulfonamides; Z79.899 Other long term (current) drug therapy
CPT/HCPCS: 81001; 87086; 99283; A9270